=== PATIENT | female | born 1970 | race Caucasian/White ===

== ENCOUNTER → 2016-09-07 | Outpatient (CLI) | payer BC ==
[~2016-09-07] VITALS: Ht 177.8 cm; Wt 131.2 kg
[~2016-09-07] MED LIST: ASPI-390 PO; CEFAZOLIN 3000 MG/65 ML D5W IV SCH; LACTATED RINGER'S 1000ML 1,000 ML IV SCH
[2016-09-07 14:07] VITALS: Ht 177.8 cm; Wt 131.2 kg
--- NOTE | 2016-09-07 14:31 | PAT Medication Instructions ---
Service Date Sep 07, 2016. Current Home Medication List Zalgltk-Ajykwkbikzkpn-Wziolkzg (Excedrin Migraine), 1 TAB PO PRN PRN for Headache Medication Instructions For Your Scheduled Surgery - Check with surgeon for instructions: Onjhnpt-Hyvfurkacpkqr-Dmtvezxb (Excedrin Migraine), 1 TAB PO PRN PRN for Headache If you have any questions please call us at [phone] (Tabatha Pereira PA-C) or [phone] or [phone]
--- NOTE | 2016-09-07 15:15 | DIAGNOSTIC IMAGING REPORT ---
CHEST PREADMISSION(PA/LAT) CLINICAL HISTORY: Preoperative chest COMPARISON STUDY: No previous studies for comparison. FINDINGS: The cardiac and mediastinal contours are normal. There is no evidence of focal pulmonary consolidation. There is no evidence of failure. No pleural effusions are visualized.[ IMPRESSION: No active disease in the chest. Electronically signed by: Tolu Cutler M.D. 09/07/2016 3:14 PM Dictated Date/Time: 09/07/2016 3:14 PM
[2016-09-07 15:30] LABS: URINE APPEARANCE CLEAR (CLEAR); URINE BILIRUBIN NEG (NEG); URINE COLOR YELLOW; URINE NITRITE NEG (NEG); URINE SPECIFIC GRAVITY 1.022 (1.000-1.030); UROBILINOGEN NEG (NEG)
[2016-09-07 15:32] LABS: MANUAL MICROSCOPIC REQUIRED? NO; REVIEW REQ? NO
[2016-09-07 15:32] LABS: BASO % 0.1 %; BASO ABS # 0.01 K/uL (0-0.2); COMPLETE YES; EOS % 2.1 %; HEMATOCRIT 39.6 % (37-47); IG% 0.1 %; LYMPH % 21.1 %; LYMPH ABS # 1.84 K/uL (1.2-3.4); MEAN CELL VOLUME 90.2 fL (80-100); MEAN CORPUSCULAR HEMOGLOBIN 31.4 pg (25-34); MEAN CORPUSCULAR HGB CONC 34.8 g/dl (32-36); MEAN PLATELET VOLUME 11.1 fL (7.4-10.4); MONO % 6.5 %; NEUT % 70.1 %; PLATELET COUNT 176 K/uL (130-400); RED BLOOD COUNT 4.39 M/uL (4.2-5.4); WHITE BLOOD COUNT 8.71 K/uL (4.8-10.8)
[2016-09-07 15:39] LABS: PARTIAL THROMBOPLASTIN RATIO 1.1; PROTHROMBIN TIME (PATIENT) 10.7 SECONDS (9.0-12.0)
--- NOTE | 2016-09-19 10:41 | ECHOCARDIOGRAM REPORT ---
*NOTICE TO RECEIVING REPUBLICAN AGENCY This information is strictly Confidential and protected under [place] law. [place] law prohibits you from making any further disclosure of this information unless further disclosure is expressly permitted by the written consent of the person to whom it pertains or is authorized by law. A general authorization for the release of medical or other information is not sufficient for this purpose. Hospital accepts no responsibility if the information is made available to any other person, INCLUDING THE PATIENT. Interpretation Summary * Name: JEANETTE CHAUDHRY Study Date: 09/19/2016 07:49 AM BP: 10/57 mmHg * Patient Location: [facility] HR: 98 * : 03/13/1980 (M/d/yyyy) Gender: Female Height: 64 in * Age: 36 yrs Ethnicity: [place] Weight: 123 lb * Referring Physician: GAUDENCIO * Performed By: Karthik Almaraz RCS * * Reason For Study: IV Drug Abuse, Eval for Endocarditis * BSA: 1.6 m2 * -- Conclusions -- * Normal LV chamber size and wall thickness. * Normal LV systolic function, EF 65-70%. * No segmental left ventricular wall motion abnormalities are noted. * Normal diastolic function. * No significant valvular pathology. * No valvular lesions identified within the scope of this imaging modality. Procedure Details * A complete two-dimensional transthoracic echocardiogram was performed (2D, M-mode, Doppler and color flow Doppler). Left Ventricle * The left ventricle is normal in size. * There is normal left ventricular wall thickness. * Ejection Fraction = 65-70%. * Left ventricular systolic function is normal. * No segmental left ventricular wall motion abnormalities are noted. * The left ventricular wall motion is normal. Right Ventricle * The right ventricular cavity size is normal (basal dimension <4.2 cm in right ventricular apical 4-chamber view). * The right ventricular systolic function is normal as assessed by tricuspid annular plane systolic excursion (TAPSE) (normal >1.5 cm). Atria * The left atrial size is normal. * Right atrial size is normal. * No ASD detected; PFO is not assessed. Mitral Valve * The mitral valve is normal in structure and function. Tricuspid Valve * The tricuspid valve is normal in structure and function. Aortic Valve * The aortic valve is not well visualized. * No hemodynamically significant valvular aortic stenosis. * There is no significant aortic regurgitation. Pulmonic Valve * The pulmonary valve is not well seen, but the Doppler examination is normal without significant regurgitation or stenosis. Great Vessels * The aortic root is normal size. Pericardium/Pleural * There is no pericardial effusion. Left Ventricular Diastolic Function * Pulse wave TDI of the anterior and posterior mitral annulas demonstrates normal LV relaxation MMode 2D Measurements and Calculations IVSd 0.84 cm IVSs 1.1 cm LVIDd 3.7 cm LVIDs 2.0 cm LVPWd 0.81 cm LVPWs 1.2 cm IVS/LVPW 1.0 FS 45.5 % EDV(Teich) 57.2 ml ESV(Teich) 12.8 ml EF(Teich) 77.6 % EDV(cubed) 49.6 ml ESV(cubed) 8.1 ml EF(cubed) 83.8 % % IVS thick 33.8 % % LVPW thick 48.9 % LV mass(C)d 84.8 grams LV mass(C)dI 53.3 grams/m\S\2 LV mass(C)s 61.5 grams LV mass(C)sI 38.7 grams/m\S\2 CO(Teich) 3.9 l/min CI(Teich) 2.5 l/min/m\S\2 SV(Teich) 44.4 ml SI(Teich) 27.9 ml/m\S\2 CO(cubed) 3.7 l/min CI(cubed) 2.3 l/min/m\S\2 SV(cubed) 41.6 ml SI(cubed) 26.1 ml/m\S\2 Ao root diam 3.1 cm Ao root area 7.6 cm\S\2 ACS 1.2 cm LA dimension 3.0 cm LA/Ao 0.98 LVAd ap4 29.0 cm\S\2 LVLd ap4 8.5 cm EDV(MOD-sp4) 82.0 ml LVAs ap4 13.3 cm\S\2 LVLs ap4 6.2 cm ESV(MOD-sp4) 24.0 ml EF(MOD-sp4) 70.7 % LVAd ap2 32.9 cm\S\2 LVLd ap2 9.4 cm EDV(MOD-sp2) 96.0 ml LVAs ap2 18.5 cm\S\2 LVLs ap2 7.3 cm ESV(MOD-sp2) 39.0 ml EF(MOD-sp2) 59.4 % CO(MOD-sp4) 5.1 l/min CI(MOD-sp4) 3.2 l/min/m\S\2 SV(MOD-sp4) 58.0 ml SI(MOD-sp4) 36.5 ml/m\S\2 CO(MOD-sp2) 5.0 l/min CI(MOD-sp2) 3.2 l/min/m\S\2 SV(MOD-sp2) 57.0 ml SI(MOD-sp2) 35.8 ml/m\S\2 Doppler Measurements and Calculations MV E max monica 102.7 cm/sec MV A max monica 51.3 cm/sec MV E/A 2.0 MV P1/2t max monica 126.0 cm/sec MV P1/2t 88.3 msec MVA(P1/2t) 2.5 cm\S\2 MV dec slope 417.6 cm/sec\S\2 MV dec time 0.23 sec Ao V2 max 138.5 cm/sec Ao max PG 7.7 mmHg Ao max PG (full) 3.4 mmHg LV V1 max PG 4.3 mmHg LV V1 max 103.2 cm/sec PA V2 max 101.8 cm/sec PA max PG 4.1 mmHg TR max monica 208.5 cm/sec
== END | disposition home or self-care (01) ==
LOC: C.LAB 08:00 → EDSTATUS 09-22 06:44
PROVIDERS: ATTEND Orthopaedic Surgery Orthopaedic Surgery of the Spine
DX: Z01.810 Encounter for preprocedural cardiovascular examination (principal); Z01.811 Encounter for preprocedural respiratory examination; Z01.812 Encounter for preprocedural laboratory examination